=== PATIENT | male | born 1990 | race Caucasian/White ===

== ENCOUNTER 2019-04-05 12:02 | Emergency (ER) | payer BC, OTHER ==
[2019-04-05] MEDS ORDERED: ACETAMINOPHEN 1,000 MG/100 ML BTL IVPB ONE (12:28)
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
[2019-04-05 12:43] LABS: ABSOLUTE NEUTROPHIL COUNT 4.99; BASO % 0.5 % (0-6); EOS % 2.6 % (0-6); HEMATOCRIT 45.7 % (42.0-52.0); HEMOGLOBIN 15.9 gm/dl (14.0-18.0); LYMPH % 27.1 % (16-45); MEAN CELL VOLUME 84.5 fl (81-97); MEAN CORPUSCULAR HEMOGLOBIN 29.4 pg (27-33); MEAN CORPUSCULAR HGB CONC 34.8 g/dl (32-36); MEAN PLATELET VOLUME 9.1 fl (7.4-10.4); MONO % 7.8 % (0-9); PLATELET COUNT 253 K/uL (130-400); RED BLOOD COUNT 5.41 M/uL (4.40-5.70); RED CELL DISTRIBUTION WIDTH 11.9 % (11.5-14.5); WHITE BLOOD COUNT W/O DIFF 8.1 K/uL (4.2-12.2)
[2019-04-05 12:54] LABS: BLOOD UREA NITROGEN 16 mg/dL (6-20); CREATININE 0.9 mg/dL (0.7-1.2); EST GLOMERULAR FILTRATION RATE > 60 mL/min
[2019-04-05 12:57] LABS: GLUCOSE,RANDOM 97 mg/dL (74-109)
[2019-04-05 13:00] LABS: ALBUMIN 5.2 g/dL (4.0-5.0); ALKALINE PHOSPHATASE 91 U/L (40-129); ALT/SGPT 76 U/L (<41); AST/SGOT 40 U/L (10.0-50.0)
[2019-04-05 13:02] LABS: BILIRUBIN,DIRECT < 0.2 mg/dL (0-0.3)
--- NOTE | 2019-04-05 13:32 | RADIOLOGY REPORT ---
EXAMINATION: Cervical Spine Complete, 4 or 5 Views EXAM DATE: 04/05/2019 1:28 PM TECHNIQUE: AP, lateral, odontoid, bilateral oblique views. INDICATION: Pain COMPARISON: No relevant comparison studies ENCOUNTER: Initial FINDINGS: In the lateral projection, the cervical spine is seen from craniocervical junction to the C7-T1 level . Cervical lordosis is preserved. No malalignment in the anteroposterior dimension. Base of the dens is intact. Lateral mass of C1 and C2 are well aligned. Cervical vertebral body heights, facet alignme nt, and posterior spinal laminar line are preserved. No convincing cervical spine fracture or traumatic malalignment. Cervical disc space heights are preserved. Apparent osseous encroachment on the upper cervical neural foramina on oblique views. IMPRESSION: Apparent osseous encroachment on the upper cervical neural foramina on oblique views. If there is cli nical concern for radiculopathy, consider further evaluation with MRI. Dictated by: Nunu Pope MD on 04/05/2019 1:27 PM. .
--- NOTE | 2019-04-05 13:41 | RADIOLOGY REPORT ---
EXAMINATION: Right Ribs with Frontal View Chest, Minimum Three Views EXAM DATE: 04/05/2019 1:28 PM TECHNIQUE: AP and oblique views of the right ribs with frontal view of the chest INDICATION: pain COMPARISON: None ENCOUNTER: Initial FINDINGS: Chest: The heart, mediastinum and pulmonary vasculature are normal. No lung consolidation or pleu ral effusions are present. Right ribs: There is no acute rib fracture. There is no lytic or blastic bone lesion. IMPRESSION: Normal chest. No rib fractures. Dictated by: Lion Antonio MD on 04/05/2019 1:38 PM. .
--- NOTE | 2019-04-05 13:41 | RADIOLOGY REPORT ---
EXAMINATION: Right Shoulder, Complete Minimum Two Views EXAM DATE: 04/05/2019 1:28 PM TECHNIQUE: AP, Grashey, and axillary INDICATION: pain COMPARISON: None ENCOUNTER: Initial FINDINGS: There is no bone or joint abnormality. IMPRESSION: Normal exam. Dictated by: Matias Cummings MD on 04/05/2019 1:38 PM. .
--- NOTE | 2019-04-05 13:42 | RADIOLOGY REPORT ---
EXAMINATION: Right Wrist Complete, Minimum Three Views EXAM DATE: 04/05/2019 1:28 PM TECHNIQUE: PA, lateral, and oblique INDICATION: pain COMPARISON: Right forearm radiographs 07/04/2008 ENCOUNTER: Initial FINDINGS: There is no bone or joint abnormality. IMPRESSION: Normal exam. Dictated by: Matias Cummings MD on 04/05/2019 1:39 PM. .
[2019-04-05 13:44] LABS: URINE APPEARANCE CLEAR; URINE BILIRUBIN NEGATIVE (NEGATIVE); URINE BLOOD NEGATIVE (NEGATIVE); URINE COLOR YELLOW; URINE GLUCOSE (UA) NEGATIVE (NEGATIVE); URINE KETONE NEGATIVE (NEGATIVE); URINE LEUKOCYTE ESTERASE NEGATIVE (NEGATIVE); URINE NITRITE NEGATIVE (NEGATIVE); URINE PROTEIN NEGATIVE (NEGATIVE); URINE UROBILINOGEN 0.2 E.U./dL (0.20 - 1.00)
== END 2019-04-05 14:05 | disposition home or self-care (01) ==
LOC: ER 12:02
DX: S40.011A Contusion of right shoulder, initial encounter (principal); M54.2 Cervicalgia; R51 Headache; R07.81 Pleurodynia; M25.531 Pain in right wrist; V86.55XA Driver of 3- or 4- wheeled all-terrain vehicle (ATV) injured in nontraffic accident, initial encounter
CPT/HCPCS: 72050; 80048; 80076; 81003; 85025; 96365; 99284